=== PATIENT | male | born 1985 | race Caucasian/White ===

== ENCOUNTER 2019-10-08 16:02 | Emergency (ER) | payer BC, OTHER ==
[~2019-10-08] VITALS: Ht 193 cm; Wt 106.6 kg
[2019-10-08] MEDS ORDERED: LISINOPRIL10 MG PO (16:08)
[2019-10-08 16:53] LABS: CALCIUM 8.5 mg/dL (8.5-10.1); CREATININE 1.2 mg/dL (0.6-1.3); POTASSIUM 3.8 mmol/L (3.5-5.1)
[2019-10-08 17:04] LABS: ALBUMIN 4.3 g/dL (3.4-5.0); TOTAL BILIRUBIN 1.3 mg/dL (<0.1-1.0); TOTAL PROTEIN 7.6 g/dL (6.4-8.2)
[2019-10-08 17:11] LABS: ABSOLUTE EOSINOPHILS 0.1 thou/uL (0.0-0.7); ABSOLUTE LYMPHOCYTES 1.4 thou/uL (0.8-5.3); ABSOLUTE MONOCYTES 0.5 thou/uL (0.0-1.2); ABSOLUTE NEUTROPHILS 2.5 thou/uL (1.6-8.1); BASOPHILS 0.7 %; EOSINOPHILS 3.1 %; HEMATOCRIT 48.5 % (42.0-52.0); HEMOGLOBIN 17.3 gm/dL (14.0-18.0); LYMPHOCYTES 30.8 %; MCH 32.4 pg (26.0-34.0); MCHC 35.8 g/dL (28.0-37.0); MCV 90.6 fL (80.0-100.0); MONOCYTES 10.7 %; MPV 8.7 fl. (7.2-11.1); NUCLEATED RBCS 0 /100WBC; PLATELET COUNT* 189 thou/uL (150-400); POLYS 54.7 %; RBC 5.35 mil/uL (4.50-6.00); RDW-CV 12.7 % (10.5-14.5); WBC 4.5 thou/uL (4.0-11.0)
[2019-10-08] MEDS ORDERED: MECLIZINE HCL25 M1 PO (18:20)
[2019-10-08 18:24] VITALS: BP 124/83
--- NOTE | 2019-10-09 12:35 | EKG ---
[place] [address] ELECTROCARDIOGRAM REPORT Name: OBINNA HAMMONDS Room: [facility]#: [id number] Admission: 10/08/19 Attend Phys: Discharge: 10/08/19 Date of : 89 Date of Service: 10/08/19 1606 Report #: [id number] THIS REPORT FOR: //name// [facility] ED Test Date: 2019-10-08 Test Time: 16:06:28 Pat Name: OBINNA HAMMONDS Department: Room: Gender: [employer] Operator: [facility] : 1985 Requested By: Issac Stratton Order Number: [id number] MD: Ziggy Lee Measurements Intervals Means Rate: 65 P: 26 AL: 147 QRS: 31 QRSD: 103 T: 8 QT: 334 QTc: 348 Interpretive Statements Sinus rhythm RSR' in V1 or V2, probably normal variant Baseline wander in lead(s) II,III,aVR,aVF No previous ECG available for comparison Electronically Signed On 10-09-2019 12:35:33 CDT by Ziggy Lee [email or web address] <ELECTRONICALLY SIGNED> By: Ziggy Lee MD, FACC 10/09/19 1235 1606 1606 Ziggy Lee MD, [facility] /EPI
== END 2019-10-08 18:24 | disposition home or self-care (01) ==
LOC: M.ERS 16:02
PROVIDERS: Emergency Medicine Emergency Medical Services
DX: R42 Dizziness and giddiness (principal); I10 Essential (primary) hypertension; Z79.899 Other long term (current) drug therapy